=== PATIENT | female | born 1990 | race Two or more races ===

== ENCOUNTER 2022-09-21 11:46 | Emergency (ER) | payer OTHER ==
[2022-09-21 11:56] VITALS: BP 128/86; PULSE 89; RESP 18; TEMP 98.4; BMI 32.3
[2022-09-21] MEDS ORDERED: ACETAMINOPHEN 1000 MG/100 ML BAG IVPB ONE (13:33)
[2022-09-21 13:38] LABS: BASO % 0.7 % (0-2.0); EOS % 3.4 % (0-4.5); HEMATOCRIT 36.7 % (32.4-45.2); HEMOGLOBIN 12.9 GM/dL (10.7-15.3); LYMPH % 34.5 % (8-40); MCH 31.9 pg (25.7-33.7); MCHC 35.2 g/dl (32.0-36.0); MEAN CELL VOLUME 90.5 fl (80-96); MEAN PLT VOLUME 6.3 fl (7.5-11.1); NEUT % 53.4 % (42.8-82.8); PLATELET COUNT 333 10^3/uL (134-434); RBC 4.05 M/mm3 (3.60-5.2); RDW 12.5 % (11.6-15.6); WHITE BLOOD COUNT 5.3 K/mm3 (4.0-10.0)
[2022-09-21] MEDS ORDERED: ACETAMINOPHEN INJECTION 100 ML IVPB ONE (13:44)
[2022-09-21 14:02] LABS: POTASSIUM 5.1 mmol/L (3.5-5.1)
[2022-09-21 14:04] LABS: CALCIUM 9.8 mg/dL (8.5-10.1)
[2022-09-21 14:05] LABS: BLOOD UREA NITROGEN 16.5 mg/dL (7-18)
[2022-09-21 14:07] LABS: CREATININE 0.9 mg/dL (0.55-1.3)
[2022-09-21 14:09] LABS: BILIRUBIN,TOTAL 0.4 mg/dL (0.2-1); TOT PROT 7.7 g/dl (6.4-8.2)
[2022-09-21 14:53] LABS: EPI CELLS 9 /uL (0-25.1); HYALINE CASTS 0 /uL (0-3.1); PH,URINE 6.5 (5.0-8.0); URINE APPEARANCE CLEAR; URINE BACTERIA 220 /uL (0-1359); URINE BILIRUBIN NEGATIVE (NEGATIVE); URINE COLOR YELLOW; URINE GLUCOSE (UA) NEGATIVE (NEGATIVE); URINE KETONE NEGATIVE (NEGATIVE); URINE LEUK ESTERASE TRACE (NEGATIVE); URINE NITRITE NEGATIVE (NEGATIVE); URINE PROTEIN NEGATIVE (NEGATIVE); URINE RBC 8 /uL (0-23.9); URINE UROBILINOGEN 0.2 mg/dL (0.2-1.0); URINE WBC 17 /uL (0-25.8)
== END 2022-09-21 14:43 | disposition home or self-care (01) ==
LOC: JER 11:46
PROC: 3E033NZ Introduction of Analgesics, Hypnotics, Sedatives into Peripheral Vein, Percutaneous Approach (ICD-10-PCS; principal; 2022-09-21)
DX: R07.9 Chest pain, unspecified (principal); M79.10 Myalgia, unspecified site; R11.0 Nausea; R45.0 Nervousness
CPT/HCPCS: 36415; 71046-TC-FY; 80053; 81003; 83690; 84484; 85025; 87086; 93005; 93010; 99285-25